=== PATIENT | female | born 1930 | race Caucasian/White ===

== ENCOUNTER → 2017-12-28 | Outpatient (CLI) | payer OTHER | LOC: HYPER 07:03 | DX: L84 Corns and callosities (principal); N18.9 Chronic kidney disease, unspecified; M62.81 Muscle weakness (generalized); R27.9 Unspecified lack of coordination; R26.2 Difficulty in walking, not elsewhere classified; M19.90 Unspecified osteoarthritis, unspecified site; F32.9 Major depressive disorder, single episode, unspecified; F03.90 Unspecified dementia, unspecified severity, without behavioral disturbance, psychotic disturbance, mood disturbance, and anxiety; Z87.891 Personal history of nicotine dependence ==